=== PATIENT | male | born 1975 | race Caucasian/White ===

== ENCOUNTER 2020-08-03 17:26 | Inpatient (IN) | payer OTHER ==
[~2020-08-03] VITALS: Ht 185.4 cm; Wt 123.2 kg
[2020-08-03 18:00] LABS: BASOPHIL 0.6 % (0-2); EOSINOPHIL 1.8 % (0-5); HCT 37.6 % (42.0-52.0); HGB 13.6 g/dl (13.2-18.0); MCH 31.9 pg (25.0-31.0); MCHC 36.2 g/dL (32.0-36.0); MCV 88.3 fL (78.0-100.0); MONOCYTE 10.2 % (0-12); MPV 9.8 fL (6.0-9.5); NEUTROPHIL 48.9 % (41-80); NRBC 0; PLT 147 K/uL (150-400); RBC 4.26 M/uL (4.70-6.00); RDW 12.2 % (11.5-14.0); WBC 6.6 K/uL (4.0-10.5)
[2020-08-03 18:20] LABS: ALBUMIN 3.7 g/dL (3.4-5.0); ALKALINE PHOSHATASE 123 U/L (46-116); ALT 243 U/L (16-63); AST 107 U/L (15-37); BILIRUBIN - TOTAL 0.8 mg/dL (0.2-1.0); BUN 18 mg/dL (7-18); BUN/CREAT RATIO (CALC) 16.1 RATIO; CHLORIDE 100 mmol/L (98-107); CO2 (BICARBONATE) 27 mmol/L (21-32); CREATININE 1.12 mg/dL (0.67-1.17); GLOBULIN (CALCULATION) 3.5 g/dL; GLUCOSE 152 mg/dL (74-106); POTASSIUM 4.5 mmol/L (3.5-5.1); TOTAL PROTEIN 7.2 g/dL (6.4-8.2)
[2020-08-03 18:21] LABS: ACETAMINOPHEN (TYLENOL) < 2.0 ug/mL (10.0-30.0)
[2020-08-03 19:04] LABS: BILIRUBIN NEGATIVE (NEGATIVE); BLOOD NEGATIVE Ery/uL (NEGATIVE); CLARITY CLEAR (CLEAR); COLOR YELLOW (YELLOW); GLUCOSE (U) NORMAL (NORMAL); LEUKOCYTES NEGATIVE Leu/uL (NEGATIVE); NITRITE NEGATIVE (NEGATIVE); PROTEIN NEGATIVE (NEGATIVE); UROBILINOGEN 0.2 mg/dL (0.2-1.0); pH 5.5 (5.0-9.0)
[2020-08-03 19:07] LABS: AMPHETAMINES NEGATIVE (NEGATIVE); BARBITURATES NEGATIVE (NEGATIVE); ECSTASY (MDMA) NEGATIVE (NEGATIVE); MARIJUANA (THC) NEGATIVE (NEGATIVE); METHADONE NEGATIVE (NEGATIVE); OPIATES NEGATIVE (NEGATIVE); OXYCODONE NEGATIVE (NEGATIVE)
[2020-08-04] MEDS ORDERED: SEROQUEL 100MG100 MG PO ×3 (03:49→08:25)
[2020-08-04] MEDS ORDERED: BUPRENORPHINE HC8 MG SL (03:49)
[2020-08-04 04:34] LABS: BASOPHIL 0.5 % (0-2); EOSINOPHIL 2.8 % (0-5); HGB 14.3 g/dl (13.2-18.0); LYMPHOCYTE 32.6 % (15-48); MCH 31.8 pg (25.0-31.0); MCHC 35.8 g/dL (32.0-36.0); MCV 89.1 fL (78.0-100.0); MONOCYTE 9.5 % (0-12); MPV 9.7 fL (6.0-9.5); NEUTROPHIL 54.3 % (41-80); NRBC 0; PLT 147 K/uL (150-400); RBC 4.49 M/uL (4.70-6.00); RDW 12.4 % (11.5-14.0)
[2020-08-04 04:57] LABS: CREATININE 0.8 mg/dL (0.67-1.17); POTASSIUM 4.5 mmol/L (3.5-5.1)
[2020-08-04] MEDS ORDERED: GABAPENTIN800 MG PO (08:24)
[2020-08-04] MEDS ORDERED: BUPRENORPHINE HC8 MG PO (08:27)
[2020-08-04] MEDS ORDERED: CYMBALTA 30MG C30 MG PO (08:29)
[2020-08-04] MEDS ORDERED: ATARAX25 MG PO (08:30)
[2020-08-04] MEDS ORDERED: CLONIDINE HCL0.3 MG PO (08:33)
[2020-08-04] MEDS ORDERED: PRINIVIL20 MG PO (08:34)
[2020-08-04] MEDS ORDERED: THORAZINE25 MG PO (08:36)
[2020-08-04] MEDS ORDERED: METFORMIN HCL500 MG PO (08:37)
--- NOTE | 2020-08-04 11:27 | NUR ---
WENT INTO SPEAK TO PATIENT I FOUND [employer] [facility] [employer] [facility] AND PRINTED THEM OUT AND EXPLAINED AND GAVE TO HIM PT ACCEPTED THE INFOMATION BUT SAID HE HAD A SUPPORT GROUP ALREADT IN [place] HE GOES TOO. HE KOWS AND WANTS TO GO TO [facility] FOR HELP,
--- NOTE | 2020-08-04 15:12 | NUR ---
patient belongings returned to patient from security. ALL ITEMS COUNTED AND AMOUNT ENTERED ON BELONGINGS ENVELOPE IN PRESENCE OF PATIENT. PATIENT VERIFIED THAT ALL BELONGINGS WERE ACCOUNTED FOR.
--- NOTE | 2020-08-04 16:55 | NUR ---
TRANSFERRED TO [facility] VIA EMS. IV AND MONITOR DCD. BELONGINGS GIVEN TO PARAMEDICS INCLUDING SEROQUEL AND SUBUTEX. PATIENT STABLE AT DISCHARGE
== END 2020-08-04 17:00 | DRG 918 ==
LOC: FER 17:26 → FICU 20:28 → FER 21:30 → FICU 08-04 17:00
PROVIDERS: Emergency Medicine; Nurse Practitioner; ADMIT Internal Medicine
DX: T40.491A Poisoning by other synthetic narcotics, accidental (unintentional), initial encounter (principal); R45.851 Suicidal ideations; I10 Essential (primary) hypertension; R73.03 Prediabetes; F31.9 Bipolar disorder, unspecified; Z20.822 Contact with and (suspected) exposure to COVID-19; B19.20 Unspecified viral hepatitis C without hepatic coma; F17.210 Nicotine dependence, cigarettes, uncomplicated; Z88.5 Allergy status to narcotic agent; Z88.0 Allergy status to penicillin; Z79.899 Other long term (current) drug therapy
CPT/HCPCS: 36415; 70450; 80048; 80053; 80305; 81003; 84484; 85025; 93005; G0480; J1650; J2060; J2310; J7030; J7040; U0002